=== PATIENT | female | born 1995 | race Caucasian/White ===

== ENCOUNTER 2016-07-16 08:47 | Emergency (ER) | payer OTHER ==
[~2016-07-16] VITALS: Ht 160 cm; Wt 65.6 kg
[~2016-07-16 08:47] MED LIST: AMOX500T3 PO; BCPILLS PO
[2016-07-16 08:49] VITALS: TEMP 36.4; Ht 160 cm; Wt 65.6 kg
[2016-07-16 09:27] LABS: MANUAL MICROSCOPIC REQUIRED? NO; REVIEW REQ? YES; URINE APPEARANCE CLOUDY (CLEAR); URINE BILIRUBIN NEG (NEG); URINE COLOR YELLOW; URINE EPITHELIAL CELL AUTO >30 /lpf (0-5); URINE NITRITE NEG (NEG); URINE SPECIFIC GRAVITY 1.022 (1.000-1.030); UROBILINOGEN NEG (NEG); ZZUR CULT IF INDIC CLEAN CATCH YES
[2016-07-16 09:27] LABS: BASO % 0.2 %; BASO ABS # 0.03 K/uL (0-0.2); COMPLETE YES; EOS % 1.4 %; HEMATOCRIT 41.2 % (37-47); IG% 0.3 %; LYMPH % 32.9 %; LYMPH ABS # 4.13 K/uL (1.2-3.4); MEAN CORPUSCULAR HGB CONC 35.4 g/dl (32-36); MEAN PLATELET VOLUME 9.7 fL (7.4-10.4); NEUT % 57.2 %; PLATELET COUNT 401 K/uL (130-400); RED BLOOD COUNT 4.29 M/uL (4.2-5.4); WHITE BLOOD COUNT 12.57 K/uL (4.8-10.8)
[2016-07-16 09:45] LABS: URINE MUCUS PRESENT (NONE PRSENT)
[2016-07-16 09:46] LABS: BUN/CREATININE RATIO 12.9 (10-20); CALCIUM 8.8 mg/dl (8.5-10.1); POTASSIUM 3.5 mmol/L (3.5-5.1)
[2016-07-16 09:49] LABS: ALB/GLOB RATIO 1.3 (0.9-2)
--- NOTE | 2016-07-16 10:22 | EMERGENCY ROOM VISIT NOTE ---
History Report prepared by Ammonibsunil: Siobhan Osorio Under the Supervision of: Dr. Nancy Pérez M.D. First contact with patient: 09:47 Chief Complaint: ABDOMINAL PAIN Stated Complaint: EXTREME ABD. PAIN, VOMITING Nursing Triage Summary: Lower abd pain and nausea. Hx of kidney stones, states does not feel like that today. History of Present Illness The patient is a 20 year old female who presents to the Emergency Room with complaints of persistent abdominal pain that began this morning. She states that she woke up with the pain this morning. Initially, she had shooting pain in the mid-lower abdomen and and cramping pain in her upper abdomen. She vomited twice this morning. She has never had similar pain in the past. She has not eaten or drank anything since she vomited. Currently, her symptoms feel slightly improved compared to earlier this morning, as the shooting pain in her upper abdomen has resolved. Denies diarrhea or other complaints. Denies recent travel or irregular food intake. Her last menstrual period was 2 weeks ago. She is on control. She is sexually active but denies any history of STDs. She notes that she had more cramping during her last menstrual period but it does not feel similar to her symptoms today. Source of History: patient Position: abdomen Quality: cramping, other (shooting) Timing: other (persistent) Associated Symptoms: + vomiting, No diarrhea Review of Systems See HPI for pertinent positives & negatives. A total of 10 systems reviewed and were otherwise negative. Past Medical & Surgical Medical Problems: (1) Kidney stone Family History Cancer Diabetes mellitus Kidney stones Social History Smoking Status: Never Smoker Marital Status: single Housing Status: lives with roommate Occupation Status: [employer] student Current/Historical Medications Scheduled Control Pills ( Control Pills), 1 TAB PO DAILY Sulfa/Trimethoprim (Bactrim Ds 800MG/160MG), 1 TAB PO BID Allergies Coded Allergies: Amoxicillin (Unverified Allergy, Intermediate, RASH, 07/16/16) PATIENT IS HERE FOR A RASH AND HAD GOTTEN IT AFTER TAKING THIS. PATIENT SAID SHE RECENTLY TRIED IT AND HAD NO REACTION. SHE HAD IT ABOUT TWO WEEKS AGO. TODAY IS 07/16/16 Levofloxacin (Verified Allergy, Unknown, Rash, 07/16/16) Physical Exam Vital Signs Date Time Temp Pulse Resp B/P Pulse Ox O2 Delivery O2 Flow Rate FiO2 07/16/16 11:45 68 16 114/64 98 Room Air 07/16/16 09:35 70 15 93/53 98 Room Air 07/16/16 08:49 36.4 77 16 116/79 99 Room Air Physical Exam Vital signs reviewed. General: Well-appearing 20 year old female, in no significant distress. HEENT: No scleral icterus, PERRLA, neck supple. Atraumatic. Cardiovascular: Regular rate and rhythm, no extra sounds. Pulmonary: Clear to auscultation bilaterally, normal work of breathing. Abdomen: Soft, mild tenderness to palpation of the suprapubic region and right inguinal region, nondistended, positive bowel sounds. Musculoskeletal: Atraumatic, no peripheral edema. Neurologic: Patient awake alert and oriented x 3, full strength in all 4 extremities. Cranial nerves 2 through 12 grossly intact. Skin: Warm, dry, no rash Medical Decision & Procedures Laboratory Results 07/16/16 09:00 Red Blood Count 4.29, Mean Corpuscular Volume 96.0, Mean Corpuscular Hemoglobin 34.0, Mean Corpuscular Hemoglobin Concent 35.4, Mean Platelet Volume 9.7, Neutrophils (%) (Auto) 57.2, Lymphocytes (%) (Auto) 32.9, Monocytes (%) (Auto) 8.0, Eosinophils (%) (Auto) 1.4, Basophils (%) (Auto) 0.2, Neutrophils # (Auto) 7.20, Lymphocytes # (Auto) 4.13, Monocytes # (Auto) 1.00, Eosinophils # (Auto) 0.17, Basophils # (Auto) 0.03 07/16/16 09:00 Test 07/16/16 08:55 07/16/16 09:00 Urine Color YELLOW Urine Appearance CLOUDY (CLEAR) Urine pH 5.0 (4.5-7.5) Urine Specific [place] 1.022 (1.000-1.030) Urine Protein NEG (NEG) Urine Glucose (UA) NEG (NEG) Urine Ketones TRACE (NEG) Urine Occult Blood NEG (NEG) Urine Nitrite NEG (NEG) Urine Bilirubin NEG (NEG) Urine Urobilinogen NEG (NEG) Urine Leukocyte Esterase MODERATE (NEG) Urine WBC (Auto) >30 /hpf (0-5) Urine RBC (Auto) 0-4 /hpf (0-4) Urine Hyaline Casts (Auto) 1-5 /lpf (0-5) Urine Epithelial Cells (Auto) >30 /lpf (0-5) Urine Bacteria (Auto) 2+ (NEG) Urine Pathogenic Casts /lpf (0) Urine Mucus PRESENT (NONE PRSENT) Urine Test NEG (NEG) White Blood Count 12.57 K/uL (4.8-10.8) Red Blood Count 4.29 M/uL (4.2-5.4) Hemoglobin 14.6 g/dL (12.0-16.0) Hematocrit 41.2 % (37-47) Mean Corpuscular Volume 96.0 fL (80-100) Mean Corpuscular Hemoglobin 34.0 pg (25-34) Mean Corpuscular Hemoglobin Concent 35.4 g/dl (32-36) Platelet Count 401 K/uL (130-400) Mean Platelet Volume 9.7 fL (7.4-10.4) Neutrophils (%) (Auto) 57.2 % Lymphocytes (%) (Auto) 32.9 % Monocytes (%) (Auto) 8.0 % Eosinophils (%) (Auto) 1.4 % Basophils (%) (Auto) 0.2 % Neutrophils # (Auto) 7.20 K/uL (1.4-6.5) Lymphocytes # (Auto) 4.13 K/uL (1.2-3.4) Monocytes # (Auto) 1.00 K/uL (0.11-0.59) Eosinophils # (Auto) 0.17 K/uL (0-0.5) Basophils # (Auto) 0.03 K/uL (0-0.2) RDW Standard Deviation 44.0 fL (36.4-46.3) RDW Coefficient of Variation 12.8 % (11.5-14.5) Immature Granulocyte % (Auto) 0.3 % Immature Granulocyte # (Auto) 0.04 K/uL (0.00-0.02) Anion Gap 11.0 mmol/L (3-11) Est Creatinine Clear Calc Drug Dose 82.4 ml/min Estimated GFR () 94.6 Estimated GFR (Non- 81.6 BUN/Creatinine Ratio 12.9 (10-20) Calcium Level 8.8 mg/dl (8.5-10.1) Total Bilirubin 0.6 mg/dl (0.2-1) Aspartate Amino Transf (AST/SGOT) 19 U/L (15-37) Alanine Aminotransferase (ALT/SGPT) 26 U/L (12-78) Alkaline Phosphatase 48 U/L (45-117) Total Protein 7.3 gm/dl (6.4-8.2) Albumin 4.1 gm/dl (3.4-5.0) Globulin 3.2 gm/dl (2.5-4.0) Albumin/Globulin Ratio 1.3 (0.9-2) Lipase 145 U/L (73-393) Date/Time Source Procedure Growth Status 07/16/16 08:55 Urine , Clean Catch Urine Culture - Final THREE TYPES OF ORGANISMS PRESENT, ALL... Complete Laboratory results per my review. ED Course 1004: The patient was evaluated in room A12. A complete history and physical examination was performed. 1150: Upon reevaluation, the patient was resting comfortably. She declined an ultrasound. I discussed findings with her. She verbalized agreement of the treatment plan. She was discharged home. Medical Decision Differential diagnosis: Etiologies such as appendicitis, diverticulitis, PUD, biliary pathology, UTI, pancreatitis, obstruction, mesenteric ischemia, aortic pathology, infections, inflammatory bowel disease, renal colic, ectopic , ovarian cyst, as well as others were entertained. This patient was evaluated and appeared to be in no significant distress. IV access was obtained and laboratory work was drawn. An ultrasound of the pelvis was ordered to evaluate for possibility of ovarian cyst. This study was canceled as the patient later refused. I did reevaluate the patient and she stated that her pain had resolved. Urinalysis is concerning for infection although may be contaminated. This will be sent for culture. Due to the patient's complaints of suprapubic pain, she was given a prescription for Bactrim DS 1 tablet twice daily for 3 days. She will drink plenty of clear fluids and use Tylenol or ibuprofen as needed. She will return to the ER for worsening of symptoms or any medical concerns. Impression Primary Impression: UTI (urinary tract infection) Additional Impression: Suprapubic pain Scribe Attestation The scribe's documentation has been prepared under my direction and personally reviewed by me in its entirety. I confirm that the note above accurately reflects all work, treatment, procedures, and medical decision making performed by me. Departure Information Dispostion Home / Self-Care Prescriptions Sulfa/Trimethoprim (Bactrim Ds 800MG/160MG) Tab 1 TAB PO BID, #6 TAB Prov: Nancy Pérez M.D. 07/16/16 Referrals No Doctor, Assigned (PCP) Patient Instructions My [facility] Additional Instructions Diagnosis: Suprapubic pain, UTI Bactrim DS 1 tablet twice daily for 3 days. Drink plenty of clear fluids. Ibuprofen 600 mg every 6 hours as needed for pain with food. Return to the ER for worsening of symptoms or any medical concerns. Problem Qualifiers Primary Impression: UTI (urinary tract infection) Urinary tract infection type: acute cystitis Hematuria presence: without hematuria Qualified Codes: N30.00 - Acute cystitis without hematuria
[2016-07-16 11:45] VITALS: BP 114/64; PULSE 68; O2SAT 98
[2016-07-16] MEDS ORDERED: SULF800T23 PO (11:56)
== END 2016-07-16 12:01 | disposition home or self-care (01) ==
LOC: C.EDB 08:49 → C.EDA 12:01
DX: N30.00 Acute cystitis without hematuria (principal); R10.30 Lower abdominal pain, unspecified; Z87.442 Personal history of urinary calculi; Z84.1 Family history of disorders of kidney and ureter; Z80.9 Family history of malignant neoplasm, unspecified; Z83.3 Family history of diabetes mellitus; Z79.3 Long term (current) use of hormonal contraceptives